=== PATIENT | male | born 1960 | race Caucasian/White ===

== ENCOUNTER 2022-08-23 06:05 | Day surgery (SDC) | payer OTHER, SELFPAY ==
[2022-08-12 08:29] VITALS: BMI 18.4
[2022-08-12 13:53] VITALS: BMI 17.9
[2022-08-23 06:20] VITALS: BP 177/107; PULSE 106; RESP 20; TEMP 36.8; O2SAT 99
--- NOTE | 2022-08-23 06:54 | P.PNAN_ITS ---
Anes - Initial Pre Proc Eval Procedure: Operation Date: 08/23/22 07:30 Proposed Procedures p Diagnostic Colonoscopy - Brad Gibson MD Date/Time: 08/23/22 06:54 Surgeon: Brad Gibson MD Pre Op Diagnosis: Diarrhea Patient Data Age: 62 Gender: M Height: 1.83 m Weight: 59.3 kg Allergies Allergy/AdvReac Type Severity Reaction Status Date / Time No Known Allergies Allergy Mild Verified 08/23/22 06:22 Home Medications Medication Instructions Recorded Confirmed Type ciprofloxacin HCl 500 mg tablet 500 mg PO Q12H #20 tabs 08/09/22 08/23/22 Rx metronidazole 500 mg tablet 500 mg PO Q8H #30 tabs 08/09/22 08/23/22 Rx sodium,potassium,mag sulfates 17.5 See Rx Instructions PO .COMPLEX 08/12/22 08/23/22 Rx gram-3.13 gram-1.6 gram oral soln #354 mL (Suprep Bowel Prep Kit) Patient hx anesthesia problems: none Family hx anesthesia problems: none Results Review: All pre-operative results and documents have been reviewed as part of the pre- operative evaluation. [facility] Family History Family History Father Diabetes mellitus Mother Family history of malignant neoplasm Social History Social History Smoking packs per day: 1 Smoking cigarettes per day: 20.0 Years smoked: 45 Smoking pack-years: 45.00 Smoking status: Current every day smoker Tobacco type: cigarettes Second hand tobacco smoke exposure: Yes Alcohol intake: current Drinks per week: 8 Substance use: current Substance use type: marijuana Other substance usage details: DAILY Last use: TODAY Lack of Transportation: No Lack of Food: Never True Current Housing: I Have Housing Concerned About Future Housing: No Difficulty Paying Gas/Electric Bills: No Difficulty Paying for Meds: No Currently Unemployed: No Difficulty w/ Childcare or Family Care: No Living arrangements: with friend(s) Occupation/Education: occupation Gender identity (if verbalized by the patient): Male Sexual Orientation (if Verbalized by the Patient): Straight or Heterosexual Spiritual care concerns: No Anes - Eval Final PreProcedure Day of Procedure 08/23/22 06:54 Patient weight: overweight Heart: regular rate and rhythm Lungs: clear to auscultation and normal air movement Airway: Mallampati scale class II Neurological: alert and oriented Last oral intake: >/= 8 hours ASA classification: II Emergent: no Anesthetic plan: proceed Anesthesia type and monitoring: general GIVS Results Review: All pre-operative results and documents have been reviewed as part of the pre- operative evaluation. Informed Consent: The patient's anesthetic plan and its attendant risks and benefits were discussed with the patient/family/POA. Questions were solicited and answers provided to the satisfaction of the patient/family/POA.
[2022-08-23] MEDS: LACTATED RINGERS 1,000 ML 150 ML IV CONT ×2 (06:59→08:00)
--- NOTE | 2022-08-23 07:24 | PM.HPGS ---
History of Present Illness History of Present Illness Consent: Risks, benefits, and alternatives have been discussed and questions answered. Patient agrees to proceed with procedure. Chief complaint: Diarrhea Narrative: Eric Barahoan is a 62 year old male Presents for screening colonoscopy. Patient has never previously had a colonoscopy. Patient reports 3 weeks ago had a bout of diarrhea. He had rather significant continuous watery stools. He denies any blood in his stools. Stool cultures were negative. Patient given an empiric trial of antibiotics. He states diarrhea subsequently resolved. Patient presents today for colonoscopy for screening purposes of well as for evaluation of recent diarrhea episode. Review of Systems Review of Systems: Review of systems noncontributory. [facility] Family History Family History Father Diabetes mellitus Mother Family history of malignant neoplasm Social History Social History Smoking packs per day: 1 Smoking cigarettes per day: 20.0 Years smoked: 45 Smoking pack-years: 45.00 Smoking status: Current every day smoker Tobacco type: cigarettes Second hand tobacco smoke exposure: Yes Alcohol intake: current Drinks per week: 8 Substance use: current Substance use type: marijuana Other substance usage details: DAILY Last use: TODAY Lack of Transportation: No Lack of Food: Never True Current Housing: I Have Housing Concerned About Future Housing: No Difficulty Paying Gas/Electric Bills: No Difficulty Paying for Meds: No Currently Unemployed: No Difficulty w/ Childcare or Family Care: No Living arrangements: with friend(s) Occupation/Education: occupation Gender identity (if verbalized by the patient): Male Sexual Orientation (if Verbalized by the Patient): Straight or Heterosexual Spiritual care concerns: No Meds Home Medications and Allergies Home Medications Medication Instructions Recorded Confirmed Type ciprofloxacin HCl 500 mg tablet 500 mg PO Q12H #20 tabs 08/09/22 08/23/22 Rx metronidazole 500 mg tablet 500 mg PO Q8H #30 tabs 08/09/22 08/23/22 Rx sodium,potassium,mag sulfates 17.5 See Rx Instructions PO .COMPLEX 08/12/22 08/23/22 Rx gram-3.13 gram-1.6 gram oral soln #354 mL (Suprep Bowel Prep Kit) Allergies Allergy/AdvReac Type Severity Reaction Status Date / Time No Known Allergies Allergy Mild Verified 08/23/22 06:22 Vital Signs Vital Signs - 24 hr 08/23/22 06:20 Temperature 98.2 F Pulse Rate 106 H Respiratory Rate 20 Blood Pressure 177/107 H Pulse Oximetry 99 Oxygen Delivery Room Air Exam Narrative: Physical exam reveals patient be alert. Vital signs stable. HEENT exam is unremarkable. Patient is anicteric. Lungs are clear to auscultation and percussion. Heart is without murmur or extra sounds. Abdomen bowel sounds are present soft nontender with no hepatosplenomegaly digital external rectal exam is normal. Assessment and Plan Assessment and plan (1) Encounter for screening colonoscopy: Code(s): Z12.11 - Encounter for screening for malignant neoplasm of colon Status: Acute Assessment and Plan: Patient presents for screening colonoscopy. He has never had 1 previously. Further recommendations may be given after endoscopy. (2) Diarrhea: Code(s): R19.7 - Diarrhea, unspecified Status: Acute Assessment and Plan: Patient recovering from recent diarrhea little illness. This improved after empiric antibiotics. Presumably this was an infectious etiology. Colon will be evaluated after this illness at time of endoscopy.
[2022-08-23 08:00] VITALS: BP 163/77; PULSE 78; RESP 20; O2SAT 99
[2022-08-23 08:10] VITALS: BP 182/109; PULSE 87; RESP 20; O2SAT 100
[2022-08-23 08:20] VITALS: BP 179/107; PULSE 74; RESP 20; O2SAT 100
--- NOTE | 2022-08-23 14:57 | WPDANESPN ---
Anes - Prog Note Post-Op Date/Time: 08/23/22 14:57 Cardiovascular status: normal Respiratory status: normal Airway patency: baseline Mental status: baseline Post-Op hydration status: normal Vital Signs: Last Vital Signs Temp 36.8 C 08/23/22 06:20 Pulse 74 08/23/22 08:20 Resp 20 08/23/22 08:20 BP 179/107 H 08/23/22 08:20 Pulse Ox 100 08/23/22 08:20 O2 Del Method Room Air 08/23/22 08:20 Pain Score (VAS): 0 I/O: Intake & Output 08/22/22 08/23/22 08/23/22 23:59 07:59 15:59 Intake Total 1000 50 Balance 1000 50 Post-procedural complaints: none Patient Feedback: Patient satisfied with anesthetic care.
== END 2022-08-23 08:50 | disposition home or self-care (01) ==
PROVIDERS: PCP Family Medicine; Visit Provider Internal Medicine Gastroenterology
PROC: 0DJD8ZZ Inspection of Lower Intestinal Tract, Via Natural or Artificial Opening Endoscopic (ICD-10-PCS; CPT 45378; principal; 2022-08-23 07:30)
DX: Z12.11 Encounter for screening for malignant neoplasm of colon (principal)
CPT/HCPCS: 45385

== ENCOUNTER 2022-08-23 09:00 | Outpatient (NON) | payer OTHER, SELFPAY | END 2022-08-23 09:01 | disposition home or self-care (01) | LOC: ANHLAB 08-24 07:36 | PROVIDERS: PCP Family Medicine; Visit Provider Internal Medicine Gastroenterology | DX: Z12.11 Encounter for screening for malignant neoplasm of colon (principal) | CPT/HCPCS: 88305 ==

== ENCOUNTER 2023-09-10 14:50 | Emergency (ER) | payer OTHER, SELFPAY ==
--- NOTE | ~2023-09-10 | XR_ITS ---
EXAMINATION: XR chest 2V Exam Date/Time: 09/10/2023 15:10 CDT HISTORY: SOB, cough Comparison: 12/28/2004, report only. RESULT: Lines, tubes, and devices: None. Lungs and pleura: Biapical pleural scarring greater on the right. No focal consolidation, pleural ef fusion, or pneumothorax. Mild hemidiaphragm flattening. Cardiomediastinal silhouette: Stable. Other: No acute osseous or upper abdominal finding. IMPRESSION: No acute cardiopulmonary process. Mild emphysematous change. Asymmetric biapical pleural scarring, gr eater on the right, consider nonemergent outpatient low-dose noncontrast CT of the chest for further evaluation. Reviewed, dictated and finalized at location K. IMPRESSION: No acute cardiopulmonary process. Mild emphysematous change. Asymmetric biapica l pleural scarring, greater on the right, consider nonemergent outpatient low-d ose noncontrast CT of the chest for further evaluation.
[2023-09-10 15:00] VITALS: BP 150/92; PULSE 113; RESP 18; TEMP 36.8; O2SAT 97
--- NOTE | 2023-09-10 15:26 | ED_ITS ---
HPI - URI/Sore Throat General Chief Complaint: Upper Respiratory Infection Stated Complaint: Cough Time Seen by Provider: 09/10/23 15:00 Source: patient Mode of arrival: ambulatory Limitations: no limitations History of Present Illness HPI Narrative: 63 yo M presents with c/o cough, chest congestion, SOB with exertion, fatiuge, bodyaches and chills for 4 days. Afebrile. Pt currenlty everyday smoker. Taking OTC mucinex with no relief of cough. All systems reviewed and negative except as noted above. Related Data Allergies Allergy/AdvReac Type Severity Reaction Status Date / Time No Known Allergies Allergy Mild Verified 09/10/23 14:53 Review of Systems Review of Systems: CONSTITUTIONAL: Denies fever, chills, or sweats. reports fatigue. EYES: Denies visual changes, redness, or discharge. ENT: reports rhinorrhea, congestion. Denies sore throat, or otalgia. CARDIOVASCULAR: Denies chest pain, palpitations, or edema. RESPIRATORY: reports cough and dyspnea with exertion. GASTROINTESTINAL: Denies abdominal pain, nausea, vomiting, or diarrhea. GENITOURINARY: Denies dysuria or hematuria. SKIN: Denies rash or itching. MUSCULOSKELETAL: Denies back pain, joint pain . Reports myalgia. NEUROLOGIC: Denies headache, numbness, or weakness. PSYCHIATRIC: Denies anxiety or depression. All other systems reviewed are negative, except as documented in HPI. [facility] Past Medical History Medical History Essential (primary) hypertension Personal history of colonic polyps Family History Family History Father Diabetes mellitus Mother Family history of malignant neoplasm Social History Social History Smoking packs per day: 1 Smoking cigarettes per day: 20.0 Years smoked: 45 Smoking pack-years: 45.00 Smoking status: Current every day smoker Tobacco type: cigarettes Second hand tobacco smoke exposure: Yes Alcohol intake: current Drinks per week: 8 Substance use: current Substance use type: marijuana Other substance usage details: DAILY Last use: TODAY Lack of Transportation: No Lack of Food: Never True Current Housing: I Have Housing Concerned About Future Housing: No Difficulty Paying Gas/Electric Bills: No Difficulty Paying for Meds: No Currently Unemployed: No Education: High School Diploma/GED Difficulty w/ Childcare or Family Care: No Living arrangements: with friend(s) Occupation/Education: occupation Gender identity (if verbalized by the patient): Male Sexual Orientation (if Verbalized by the Patient): Straight or Heterosexual Spiritual care concerns: No Comments At time of signature, agree with nursing past medical, surgical, social and family history. There is no relevant family history pertinent to the presenting complaint. Exam Narrative: GENERAL: This is a well-nourished, well-developed patient, in no apparent distress. HEAD: normocephalic, atraumatic. EYES: PERRL. Sclera clear/white. Vision is grossly intact. EARS: External ears normal, auditory canals clear and without drainage, TMs n ormal without perforation. Hearing grossly intact. NOSE: External nose normal with mild congestion, clear nasal drainage THROAT: Mucous membranes moist, posterior pharynx clear. NECK: Neck supple, non-tender without lymphadenopathy, masses or thyromegaly. CARDIOVASCULAR: Regular rate and rhythm without murmurs, gallops, or rubs. RESPIRATORY: decreased throughout all lung naylor. Breath sounds equal bilaterally. No wheezes, rales, or rhonchi. SKIN: warm, Dry, intact with no suspicious lesions or rash, good texture and turgor. NEURO: awake, alert, and oriented to person, place and time. There were no obvious focal neurologic abnormalities. EXTREMITIES: No joint tenderness, effusion, or edema noted. Course Course Level of Care: Express Care Visit Vital Signs Vital signs: Vital Signs Temperature 36.8 C 09/10/23 15:00 Pulse Rate 113 H 09/10/23 15:00 Respiratory Rate 18 09/10/23 15:00 Blood Pressure 150/92 H 09/10/23 15:00 Pulse Oximetry 97 09/10/23 15:00 Oxygen Delivery Room Air 09/10/23 15:00 Temperature 36.8 C 09/10/23 15:00 Pulse Rate 113 H 09/10/23 15:00 Respiratory Rate 18 09/10/23 15:00 Blood Pressure 150/92 H 09/10/23 15:00 Pulse Oximetry 97 09/10/23 15:00 Oxygen Delivery Room Air 09/10/23 15:00 Reviewed MDM - URI/Sore Throat MDM Narrative Medical decision making narrative: discussed chest x-ray results with patient. Explained radiologist outpatient CT scan chest. Explained to patient that he must follow up with his primary care physician this to be ordered. Will prescribe antibiotic today due to exam findings and patient's symptoms. Patient is aware of diagnosis, understands and agrees to treatment plan. Anticipatory guidance given. Patient agrees to follow-up as directed and is aware of reasons to seek care at the emergency department. Portions of this record may have been created with voice recognition software Lab Data Labs: Lab Results 09/10/23 Range/Units 14:58 POC SARS CoV-2 Ag Negative (Negative) Imaging Data My impression: agree with radiologist Radiologist's impression: EXAMINATION:? XR chest 2V Exam Date/Time:? 09/10/2023 15:10 CDT HISTORY: SOB, cough ? Comparison:? 12/28/2004, report only. RESULT: Lines, tubes, and devices:? None. Lungs and pleura:? Biapical pleural scarring greater on the right. No focal consolidation, pleural effusion, or pneumothorax. Mild hemidiaphragm flattening. Cardiomediastinal silhouette:? Stable. Other:? No acute osseous or upper abdominal finding. ? IMPRESSION: No acute cardiopulmonary process. Mild emphysematous change. Asymmetric biapical pleural scarring, greater on the right, consider nonemergent outpatient low-dose noncontrast CT of the chest for further evaluation. Discharge Plan Discharge Clinical Impression: Acute bronchitis Qualifiers: Bronchitis organism: unspecified organism Qualified Code(s): J20.9 - Acute bronchitis, unspecified Patient Disposition: Home, Self-Care Condition: Stable Instructions: Antibiotic Form, Acute Bronchitis (ED) Additional Instructions: Your covid test was negative today. The radioloigist recommends a CT scan of your chest due to abnormalities noted on your chest x-ray. Take medications as prescribed. Drink at least 64 ounces of water a day. See your doctor at next available appointment. Prescriptions: New doxycycline hyclate 100 mg capsule 100 mg PO BID 7 Days Qty: 14 0RF benzonatate 200 mg capsule 200 mg PO TID PRN (Reason: cough) Qty: 20 0RF prednisone 20 mg tablet 40 mg PO DAILY 5 Days Qty: 10 0RF fluticasone propionate [Flonase Allergy Relief] 50 mcg/actuation spray,suspension 1 spray intranasal BID Qty: 16 0RF Rx Instructions: administer into each nostril No Action metoprolol succinate 50 mg tablet extended release 24 hr 50 mg PO DAILY Qty: 90 1RF lisinopril 20 mg tablet 20 mg PO DAILY Qty: 30 1RF mirtazapine 15 mg tablet 15 mg PO DAILY Qty: 30 0RF Follow-up/Referrals: Randolph Bradford MD [Primary Care Provider] - 1 Week Stand Alone Forms: Work/School Release IP Time of Disposition: 15:32
== END 2023-09-10 15:37 | disposition home or self-care (01) ==
PROVIDERS: Emergency Provider Nurse Practitioner Family; PCP Family Medicine
DX: J20.9 Acute bronchitis, unspecified (principal); Z20.822 Contact with and (suspected) exposure to COVID-19; F17.210 Nicotine dependence, cigarettes, uncomplicated; F12.90 Cannabis use, unspecified, uncomplicated; I10 Essential (primary) hypertension
CPT/HCPCS: 71046; 87426; 99213; G0463

== ENCOUNTER 2023-09-14 14:31 | Outpatient (CLI) | payer OTHER, SELFPAY ==
--- NOTE | ~2023-09-14 | CT_ITS ---
EXAMINATION:CT diagnostic chest wo con DATE: 09/14/2023 14:46 INDICATION: Abnormal findings on diagnostic imaging. Abnormal chest radiograph. TECHNIQUE: Computed tomography (CT) of the chest was performed without intravenous contrast. Automate d exposure control and iterative reconstruction technique were employed. The dose-length product (DLP ) was 152.84 mGy-cm. COMPARISON: Chest 2 views 09/10/2023 FINDINGS: There is moderate emphysema. There is mild scarring at the lung apices. No pleural effusion . The heart size is normal. There are coronary artery calcifications. No pericardial effusion. There is ectasia of ascending aorta measuring 4.0 cm. There is mild bilateral gynecomastia. There is mild c ervical and thoracic spondylosis. IMPRESSION: 1. Mild scarring at the lung apices. 2. Moderate emphysema. Reviewed, dictated and finalized at location E.
== END 2023-09-14 14:32 | disposition home or self-care (01) ==
LOC: ANHIMG 14:33
PROVIDERS: PCP Family Medicine; Visit Provider Family Medicine
DX: R93.89 Abnormal findings on diagnostic imaging of other specified body structures (principal); J43.9 Emphysema, unspecified
CPT/HCPCS: 71250